=== PATIENT | female | born 1990 | race Caucasian/White ===

== ENCOUNTER 2018-04-09 22:09 | Emergency (ER) | payer OTHER ==
[2018-04-09 22:15] VITALS: BP 139/68; PULSE 69; TEMP 98.1; BMI 29.2
--- NOTE | 2018-04-09 22:38 | PDOC ---
History of Present Illness - General Chief Complaint: Sore Throat Stated Complaint: PAIN Time Seen by Provider: 04/09/18 22:17 History Source: Patient Exam Limitations: No Limitations - History of Present Illness Initial Comments: 04/09/18 22:32 Best Contact: PCP: None Pmhx: N/A Pshx: 2012: right 3rd digit reconstruction Allergies: Cipro; numbness FH:0 Social Hx: Cigarettes/ 0 Alcohol/ social Drugs/0 LMP:03/19/2018 27-year-old female presents to the emergency department complaining of sore throat, hoarseness, trouble speaking, dry cough, constant urge to clear her throat since yesterday without fever, chills, nausea/vomiting, facial pains, earaches, neck stiffness/pain, back pains, chest pain, shortness of breath. Patient denies screaming for yelling recently states she had this dry cough yesterday. Past History - Past Medical History Allergies/Adverse Reactions: Allergies Allergy/AdvReac Type Severity Reaction Status Date / Time ciprofloxacin [From Cipro] Allergy Severe Swelling Verified 04/09/18 22:15 Home Medications: Ambulatory Orders No Home Medications 0 dose .ROUTE UTDICT 10/24/13 Asthma: No Cancer: No Cardiac Disorders: No COPD: No Diabetes: No HTN: No Seizures: No Thyroid Disease: Yes - Reproductive History (#): 4 Para: 4 - Immunization History Td Vaccination: Yes Immunization Up to Date: Yes - Suicide/Smoking/Psychosocial Hx Smoking Status: No Smoking History: Never smoked Years of Tobacco Use: 0 Have you smoked in the past 12 months: No Number of Cigarettes Smoked Daily: 0 Cigars Per Day: 0 Information on smoking cessation initiated: No Hx Alcohol Use: No Drug/Substance Use Hx: No Substance Use Type: None Hx Substance Use Treatment: No Review of Systems - Review of Systems Able to Perform ROS?: Yes Comments:: 04/09/18 22:36 CONSTITUTIONAL: Absent: fever, chills, diaphoresis, generalized weakness, malaise, loss of appetite HEENT: +sore throat Absent: rhinorrhea, nasal congestion, throat swelling, difficulty swallowing, mouth swelling, ear pain, eye pain, visual Changes CARDIOVASCULAR: Absent: chest pain, loss of consciousness, palpitations, irregular heart rate, peripheral edema RESPIRATORY: Absent: cough, shortness of breath, dyspnea with exertion, orthopnea, wheezing, stridor, hemoptysis GASTROINTESTINAL: Absent: abdominal pain, abdominal distension, nausea, vomiting, diarrhea, constipation, melena, hematochezia GENITOURINARY: Absent: dysuria, frequency, urgency, hesitancy, hematuria, flank pain, genital pain MUSCULOSKELETAL: Absent: myalgia, arthralgia, joint swelling SKIN: Absent: rash, itching, pallor Is the patient limited Danish proficient: No *Physical Exam - Vital Signs Last Vital Signs Temp Pulse Resp BP Pulse Ox 98.1 F 69 17 139/68 100 04/09/18 22:12 04/09/18 22:12 04/09/18 22:12 04/09/18 22:12 04/09/18 22:12 - Physical Exam Comments: 04/09/18 22:36 GENERAL: Well developed, well nourished. Awake and alert. No acute distress. HEENT: Normocephalic, atraumatic. PERRLA, EOMI. No conjunctival pallor. Sclera are non- icteric. Moist mucous membranes. Oropharynx is clear. NECK: Supple. Full ROM. No JVD. Carotid pulses 2+ and symmetric, without bruits. No thyromegaly. No lymphadenopathy. CARDIOVASCULAR: Regular rate and rhythm. No murmurs, rubs, or gallops. Distal pulses are 2+ and symmetric. PULMONARY: No evidence of respiratory distress. Lungs clear to auscultation bilaterally. No wheezing, rales or rhonchi. ABDOMINAL: Soft. Non-tender. Non-distended. No rebound or guarding. No organomegaly. Normoactive bowel sounds. SKIN: Warm and dry. Normal capillary refill. No rashes. No jaundice. *DC/Admit/Observation/Transfer Diagnosis at time of Disposition: Laryngitis - Discharge Dispostion Condition at time of disposition: Stable Decision to Admit order: No - Referrals Referrals: Nathaniel Anne MD [Staff Physician] - - Patient Instructions Printed Discharge Instructions: DI for Laryngitis Additional Instructions: Increase fluids Avoid speaking Follow up with ENT this week Return to the ER for severe/persistent/worsening symptoms - Post Discharge Activity
== END 2018-04-10 00:28 | disposition home or self-care (01) ==
LOC: JER 22:09
DX: J04.0 Acute laryngitis (principal); Z88.1 Allergy status to other antibiotic agents
CPT/HCPCS: 87070; 87430; 99281-25

== ENCOUNTER 2019-07-05 05:25 | Day surgery (SDC) | payer OTHER ==
[2019-07-03 17:32] VITALS: BMI 27.5
[2019-07-05] MEDS ORDERED: MIDAZOLAM HCL 2 MG/2 ML SINGLE DOSE VIAL ONE (08:57)
[2019-07-05] MEDS ORDERED: PROPOFOL 20 ML ONE (08:57)
[2019-07-05] MEDS ORDERED: LIDOCAINE HCL 1% EPINEPHRINE 1:200,000 30 ML VIAL (PF) ONE (09:08)
[2019-07-05] MEDS ORDERED: BUPIVACAINE HCL/PF 0.5% (5 MG/ML) 30 ML VIAL IJ ONE ×2 (09:08→09:48)
[2019-07-05] MEDS ORDERED: LIDOCAINE HCL/PF 2% SDV 5ML VIAL ONE (09:12)
--- NOTE | 2019-07-05 09:12 | HP ---
[facility]ellite [facility] [place] - Chief Complaint Chief Complaint: right knee pain - Past Medical History Allergies/Adverse Reactions: Allergies Allergy/AdvReac Type Severity Reaction Status Date / Time ciprofloxacin [From Cipro] Allergy Severe Swelling Verified 07/05/19 08:54 ...LMP: 06/28/19 - Current Medications Current Medications: Home Medications Medication Instructions Recorded No Home Medications 0 dose .ROUTE UTDICT 10/24/13 Oxycodone HCl/Acetaminophen 1 tab PO Q6H #15 tablet MDD 4 07/05/19 [Percocet 5-325 mg Tablet] Satellite Physical Exam - Physical Examination Vital Signs: Vital Signs Period Temp Pulse Resp BP Sys/Wright Pulse Ox Last 24 Hr 97.8 F 68 20 119/73 100 General Appearance: Well Nourished, Well Developed, Alert & Oriented x3 ENT: Clear Lung: Normal air movement Heart: Regular rate & rhythm Extremities: Other (right knee- + swelling, + ttp, dec rom, + mcmurrays, nvi) Neurological: Intact, Alert, Oriented Satellite Impression/Plan - Impression/Plan Impression: right knee internal derangement Operative Procedure: right knee arthroscopy Date to be Performed: 07/05/19
[2019-07-05] MEDS ORDERED: LIDOCAINE 1%/EPI 1:100000 (50 ML MULTI DOSE VIAL) INF ONE (09:37)
[2019-07-05] MEDS ORDERED: DEXAMETHASONE SOD PHOSPHATE 4 MG/1 ML VIAL ONE (09:43)
--- NOTE | 2019-07-05 09:52 | OP ---
Operative Note - Note: Operative Date: 07/05/19 ([facility]) Pre-Operative Diagnosis: right knee internal derangement Operation: right knee arthroscopy with debridement chondroplasty Post-Operative Diagnosis: Same as Pre-op Surgeon: Paxton Mary Anesthesiologist/[employer]LY[employer]: Keri Garcia Anesthesia: General, Local Specimens Removed: shavings Estimated Blood Loss (mls): 5 Operative Report Dictated: Yes
[2019-07-05] MEDS ORDERED: ONDANSETRON 4 MG/2 ML VIAL IVPUSH PRN (12:33)
[2019-07-05] MEDS ORDERED: oxyCODONE HCL 5 MG TABLET PO PRN (12:33)
[2019-07-05 12:41] VITALS: BP 131/76; PULSE 64; TEMP 98.6
[2019-07-05] MEDS ORDERED: LACTATED RINGERS SOLUTION 1,000 ML IV SCH (12:45)
--- NOTE | 2019-07-10 15:53 | OP ---
DATE OF OPERATION: 07/05/2019 PREOPERATIVE DIAGNOSIS: Internal derangement, right knee. POSTOPERATIVE DIAGNOSIS: Internal derangement, right knee. PROCEDURE: Arthroscopy, right knee with debridement. SURGICAL ATTENDING: Paxton Mary MD ANESTHESIA: General with LMA. CLOSURES: 4-0 nylon. COMPLICATIONS: None. CONDITION: To recovery room in stable condition. DESCRIPTION OF PROCEDURE: Patient was taken to the operating room on July 05, 2019. General anesthesia with LMA was administered by the anesthesiologist. The right lower extremity was prepped and draped in the usual sterile fashion. Mediolateral infrapatellar portal sites were infiltrated with 1% Xylocaine with epinephrine. Posterior portal was then made with 15 blade followed by a blunt trocar. The scope was placed in the lateral infrapatellar portal and up to suprapatellar pouch. The knee was inflated with a cocktail of 10 mL, 1% Xylocaine, 10 mL of 0.5% Marcaine, 20 mL of arthroscopic saline. Then anesthetic was allowed to work in the knee then the procedure was performed. The pouch was visualized to be clean. The medial and lateral gutters were visualized to be clean. The undersurface of the patella and trochlea were visualized to be basically intact. With valgus stress on the knee, the medial compartment was entered. Medial meniscus was visualized and probed and found to be intact. Medial femoral condyle was found to be intact as was the medial tibial plateau. At 90 degrees, there was a large amount of fibrous tissue in the notch, and anteriorly this was all debrided using a shaver. With valgus stress on the knee, the lateral compartment was entered. The lateral meniscus was visualized and probed and found to be intact. The lateral femoral condyle was run and found to be intact as was the lateral tibial plateau. The knee was irrigated with copious amounts of irrigation. Portal was closed using 4-0 nylon. Prior to closure, 20 mL of 0.5% Marcaine was infused into the outflow portal for postoperative analgesia. A sterile pressure dressing was placed over the knee. The patient was awakened from anesthesia, transferred to recovery in stable condition. No complications. Estimated blood loss negligible. Rodrigo [id number]
== END 2019-07-05 11:50 | disposition home or self-care (01) ==
LOC: JASU-SURG 05:25
PROVIDERS: ATTEND Orthopaedic Surgery
PROC: 0SBC4ZZ Excision of Right Knee Joint, Percutaneous Endoscopic Approach (ICD-10-PCS; principal; 2019-07-05 09:30)
DX: M23.91 Unspecified internal derangement of right knee (principal)
CPT/HCPCS: 84703; 94760; 97116-GP